=== PATIENT | male | born 1980 | race Caucasian/White ===

== ENCOUNTER → 2020-03-13 | Outpatient (CLI) | payer OTHER ==
--- NOTE | 2020-03-13 08:21 | REP ---
INDICATION: UPPER ABDOMINAL PAIN. COMPARISON: None. TECHNIQUE: Complete abdominal sonography. FINDINGS: Scanning through the right upper quadrant of the abdomen demonstrates a normal sized and walled gallbladder without evidence of stone or polyp. Common bile duct is normal measuring 0.4 cm in greatest diameter. No focal liver lesion is seen. Limited views of pancreas show no abnormality. There is no evidence of ascites. A normal caliber aorta is encountered. Left upper quadrant scanning demonstrates borderline size spleen measuring 13.0 x 12.8 x 6.3 cm. No focal splenic lesion is seen. Renal cortical echogenicity pattern is normal in contours are smooth. No hydronephrosis, cyst, mass or calculus is seen. Right renal dimensions are 12.1 x 6.7 x 5.8 cm. Left kidney measures 13.1 x 5.7 x 5.4 cm. IMPRESSION: Spleen size is borderline. Otherwise negative complete abdominal sonography. <Electronically signed by Reynold Cain > 03/13/20 0801
== END ==
LOC: M RAD 07:25
PROVIDERS: ATTEND Physician Assistant
DX: R10.11 Right upper quadrant pain (principal)

== ENCOUNTER → 2020-04-15 | Outpatient (CLI) | payer OTHER ==
[~2020-04-15] MED LIST: FAMO20TA PO; OMEP-218; PANT40TA29
== END ==
LOC: M LABSMTC 09:23
PROVIDERS: ATTEND Anesthesiology
DX: Z01.812 Encounter for preprocedural laboratory examination (principal); Z20.822 Contact with and (suspected) exposure to COVID-19

== ENCOUNTER 2020-04-20 10:08 | Day surgery (SDC) | payer OTHER ==
[~2020-04-20] VITALS: Ht 188 cm; Wt 106.3 kg
[~2020-04-20 10:08] MED LIST changes: +NS 1,000 ML IV ONE
[2020-04-20] MEDS ORDERED: propofoL 200 MG/20 ML VIAL As Ordered ONE (11:56)
[2020-04-20] MEDS ORDERED: LIDOCAINE 2% 100MG/5ML SDV (FOR ANES.) As Ordered ONE (11:56)
[2020-04-20] MEDS ORDERED: fentaNYL 100 MCG/2 ML INJECTION (J3010) As Ordered ONE (11:56)
--- NOTE | 2020-04-20 12:53 | ROOR ---
Patient Name: Kirk Juan Procedure Date: 04/20/2020 12:39 PM Date of : 1980 Age: 39 Room: [facility] Gender: Male Note Status: Finalized Procedure: Upper GI endoscopy Indications: Suspected esophageal reflux Providers: Nazario Tabor Jr, MD Referring MD: Lilia Soto Requesting Provider: Medicines: Propofol per Anesthesia Complications: No immediate complications. Procedure: Pre-Anesthesia Assessment: - Prior to the procedure, a History and Physical was performed, and patient medications and allergies were reviewed. The patient is competent. The risks and benefits of the procedure and the sedation options and risks were discussed with the patient. All questions were answered and informed consent was obtained. Patient identification and proposed procedure were verified by the physician and the nurse in the pre-procedure area and in the procedure room. Mental Status Examination: alert and oriented. Airway Examination: normal oropharyngeal airway and neck mobility. Respiratory Examination: clear to auscultation. CV Examination: normal. ASA Grade Assessment: II - A patient with mild systemic disease. After reviewing the risks and benefits, the patient was deemed in satisfactory condition to undergo the procedure. The anesthesia plan was to use moderate sedation / analgesia (conscious sedation). Immediately prior to administration of medications, the patient was re-assessed for adequacy to receive sedatives. The heart rate, respiratory rate, oxygen saturations, blood pressure, adequacy of pulmonary ventilation, and response to care were monitored throughout the procedure. The physical status of the patient was re-assessed after the procedure. The Endoscope was introduced through the mouth, and advanced to the second part of duodenum. The upper GI endoscopy was accomplished without difficulty. The patient tolerated the procedure well. Findings: The upper third of the esophagus, middle third of the esophagus and lower third of the esophagus were normal. The cardia, gastric body, gastric antrum and prepyloric region of the stomach were normal. The duodenal bulb, first portion of the duodenum and second portion of the duodenum were normal. Impression: - Normal upper third of esophagus, middle third of esophagus and lower third of esophagus. - Normal cardia, gastric body, antrum and prepyloric region of the stomach. - Normal duodenal bulb, first portion of the duodenum and second portion of the duodenum. - No specimens collected. Recommendation: - Discharge patient to home (ambulatory). - Return to my office at appointment to be scheduled. Procedure Code(s): --- Professional --- 12735, Esophagogastroduodenoscopy, flexible, transoral; diagnostic, including collection of specimen(s) by brushing or washing, when performed (separate procedure) Diagnosis Code(s): --- Professional --- K21.9, Gastro-esophageal reflux disease without esophagitis CPT copyright 2019 [employer]. All rights reserved. The codes documented in this report are preliminary and upon disposal man review may be revised to meet current compliance requirements. Nazario Tabor MD Nazario Tabor Jr, MD 04/20/2020 12:53:03 PM Electronically signed by Nazario Tabor Jr, MD Number of Addenda: 0 Note Initiated On: 04/20/2020 12:39 PM Estimated Blood Loss: Estimated blood loss: none.
[2020-04-20] MEDS ORDERED: PHENYLephrine 500MCG 5ML (100MCG/ML) SYRINGE As Ordered ONE (12:57)
[2020-04-20] MEDS ORDERED: ePHEDrine SULFATE 25 MG/5 ML(5MG/ML) SYRINGE As Ordered ONE (12:58)
--- NOTE | 2020-04-20 13:20 | ROOR ---
Patient Name: Kirk Juan Procedure Date: 04/20/2020 12:41 PM Date of : 1980 Age: 39 Room: [facility] Gender: Male Note Status: Finalized Procedure: Colonoscopy Indications: Rectal bleeding Providers: Nazario Tabor Jr, MD Referring MD: Lilia Soto Requesting Provider: Medicines: Propofol per Anesthesia Complications: No immediate complications. Procedure: Pre-Anesthesia Assessment: - Prior to the procedure, a History and Physical was performed, and patient medications and allergies were reviewed. The patient is competent. The risks and benefits of the procedure and the sedation options and risks were discussed with the patient. All questions were answered and informed consent was obtained. Patient identification and proposed procedure were verified by the physician and the nurse in the pre-procedure area and in the procedure room. Mental Status Examination: alert and oriented. Airway Examination: normal oropharyngeal airway and neck mobility. Respiratory Examination: clear to auscultation. CV Examination: normal. ASA Grade Assessment: II - A patient with mild systemic disease. After reviewing the risks and benefits, the patient was deemed in satisfactory condition to undergo the procedure. The anesthesia plan was to use moderate sedation / analgesia (conscious sedation). Immediately prior to administration of medications, the patient was re-assessed for adequacy to receive sedatives. The heart rate, respiratory rate, oxygen saturations, blood pressure, adequacy of pulmonary ventilation, and response to care were monitored throughout the procedure. The physical status of the patient was re-assessed after the procedure. The Colonoscope was introduced through the anus and advanced to the cecum, identified by appendiceal orifice and ileocecal valve. The colonoscopy was performed without difficulty. The patient tolerated the procedure well. The quality of the bowel preparation was adequate. Findings: The rectum, recto-sigmoid colon, sigmoid colon, descending colon, transverse colon, ascending colon, cecum and appendiceal orifice appeared normal. A localized area of mucosa in the distal ileum was moderately friable with contact bleeding. This was biopsied with a cold forceps for histology. Impression: - The rectum, recto-sigmoid colon, sigmoid colon, descending colon, transverse colon, ascending colon, cecum and appendiceal orifice are normal. - Friability with contact bleeding in the distal ileum. Biopsied. Recommendation: - Discharge patient to home (ambulatory). - Return to my office at appointment to be scheduled. Procedure Code(s): --- Professional --- 08938, Colonoscopy, flexible; with biopsy, single or multiple Diagnosis Code(s): --- Professional --- K92.2, Gastrointestinal hemorrhage, unspecified K62.5, Hemorrhage of anus and rectum CPT copyright 2019 [employer]. All rights reserved. The codes documented in this report are preliminary and upon director human services review may be revised to meet current compliance requirements. Nazario Tabor MD Nazario Tabor Jr, MD 04/20/2020 1:20:25 PM Electronically signed by Nazario Tabor Jr, MD Number of Addenda: 0 Note Initiated On: 04/20/2020 12:41 PM Estimated Blood Loss: Estimated blood loss: none.
[2020-04-20 13:50] VITALS: BP 126/58
== END 2020-04-20 13:53 | disposition home or self-care (01) ==
LOC: M OPP 10:08
PROVIDERS: ATTEND Surgery
DX: K92.2 Gastrointestinal hemorrhage, unspecified (principal); K21.9 Gastro-esophageal reflux disease without esophagitis; K63.89 Other specified diseases of intestine; G47.30 Sleep apnea, unspecified; Z79.899 Other long term (current) drug therapy
CPT/HCPCS: 43235; 45380; 88305; J3010

== ENCOUNTER → 2020-05-19 | Outpatient (CLI) | payer OTHER ==
[~2020-05-19] MED LIST changes: +GASTROGRAFIN SOLUTION 30ML (Q9963) As Ordered ONE; +ISOVUE-370 76% 100ML VIAL As Ordered ONE; -NS 1,000 ML IV ONE
--- NOTE | 2020-05-22 07:32 | REP ---
INDICATION: UPPER ABDOMINAL PAIN, UNSPECIFIED. COMPARISON: None TECHNIQUE: Axial contrast-enhanced images from the lung bases to the pubic symphysis using oral and 100 cc Isovue 370 intravenous contrast material. Precontrast images of the abdomen obtained along with coronal and sagittal reformations. This CT examination was performed using the following dose reduction techniques: Automated exposure control, adjustment of mA and/or kv according to the patient's size, and the use of iterative reconstruction technique. FINDINGS: Liver, spleen, pancreas, gallbladder, bilateral adrenal glands and kidneys are normal. The terminal ileum at the ileocecal junction demonstrates mucosal thickening and mild fat stranding suggesting terminal ileitis. The cecum itself appears normal. The appendix is not identified. The remainder of the small and large bowel is unremarkable. Few scattered sigmoid diverticula noted without acute diverticulitis.. Pelvis demonstrates normal bladder and age-appropriate prostate/seminal vesicles. No ascites. No free air. No intraperitoneal or retroperitoneal adenopathy. Abdominal aorta and vasculature appear normal. Musculoskeletal structures are intact and without acute osseous abnormality. IMPRESSION: 1. Mucosal thickening to the terminal ileum with mild fat stranding suggests terminal ileitis. Correlation and follow-up is recommended to exclude the possibility of inflammatory bowel disease. Remainder of the small and large bowel is grossly unremarkable. 2. Few scattered sigmoid diverticula noted. 3. No further acute abdominopelvic pathology appreciated <Electronically signed by Nasim Portillo > 05/22/20 [id number]
== END ==
LOC: M RAD 13:44
PROVIDERS: ATTEND Physician Assistant
DX: K57.30 Diverticulosis of large intestine without perforation or abscess without bleeding (principal); K63.89 Other specified diseases of intestine; R10.9 Unspecified abdominal pain; K21.9 Gastro-esophageal reflux disease without esophagitis
CPT/HCPCS: 74178; Q9963; Q9967

== ENCOUNTER 2022-01-18 11:49 | Emergency (ER) | payer OTHER ==
[~2022-01-18] VITALS: Ht 193 cm; Wt 116.0 kg
[~2022-01-18 11:49] MED LIST changes: -GASTROGRAFIN SOLUTION 30ML (Q9963) As Ordered ONE; -ISOVUE-370 76% 100ML VIAL As Ordered ONE; +OMEP-173; -OMEP-218
[2022-01-18 15:00] VITALS: BP 130/83
== END 2022-01-18 15:13 | disposition home or self-care (01) ==
LOC: M ED 11:49
DX: I80.01 Phlebitis and thrombophlebitis of superficial vessels of right lower extremity (principal); Z79.899 Other long term (current) drug therapy

== ENCOUNTER → 2022-02-08 | Outpatient (REF) | payer OTHER ==
[2022-02-08 17:34] LABS: APPEARANCE, URINE MANUAL CLEAR (CLEAR); BILIRUBIN, URINE MANUAL NEGATIVE (NEGATIVE); BLOOD URINE MANUAL NEGATIVE (NEGATIVE); COLOR, URINE MANUAL YELLOW (YELLOW); GLUCOSE, URINE (UA) MANUAL NEGATIVE (NEGATIVE); KETONE, URINE MANUAL NEGATIVE (NEGATIVE); LEUKOCYTE ESTERASE, URINE MAN NEGATIVE (NEGATIVE); NITRITE, URINE MANUAL NEGATIVE (NEGATIVE); PROTEIN, URINE MANUAL NEGATIVE (NEGATIVE); UROBILINOGEN, URINE MANUAL NORMAL (NORMAL)
== END ==
LOC: M SMT 16:48
PROVIDERS: ATTEND Physician Assistant
DX: R39.9 Unspecified symptoms and signs involving the genitourinary system (principal)

== ENCOUNTER → 2022-07-10 | Outpatient (CLI) | payer OTHER ==
[2022-07-10 17:42] LABS: RHEUMATOID FACTOR QUANT < 3.5 IU/ML (<14)
== END ==
LOC: M RAD 12:47
PROVIDERS: ATTEND Ophthalmology
DX: H20.00 Unspecified acute and subacute iridocyclitis (principal)

== ENCOUNTER → 2022-07-11 | Outpatient (REF) | payer OTHER | LOC: M LAB REF 11:25 | PROVIDERS: ATTEND Ophthalmology | DX: H20.00 Unspecified acute and subacute iridocyclitis (principal) ==

== ENCOUNTER → 2022-09-05 | Outpatient (CLI) | payer OTHER ==
[~2022-09-05] MED LIST changes: +CYCL1SOL OS; -PANT40TA29; +PANT40TA29 PO; +PREDOPD OS; +TIMO0.5S20 OS
== END ==
LOC: M PLARAD 08:45
PROVIDERS: ATTEND Orthopaedic Surgery
DX: M25.551 Pain in right hip (principal); M25.561 Pain in right knee; K40.90 Unilateral inguinal hernia, without obstruction or gangrene, not specified as recurrent; M17.11 Unilateral primary osteoarthritis, right knee; M25.461 Effusion, right knee; M71.21 Synovial cyst of popliteal space [Baker], right knee

== ENCOUNTER 2023-05-08 07:23 | Day surgery (SDC) | payer OTHER ==
[~2023-05-08] VITALS: Ht 193 cm; Wt 126.6 kg
[~2023-05-08 07:23] MED LIST changes: +ACET500C10 PO; +MIDAZOLAM INJ 2MG/2ML VIAL As Ordered ONE; +PHENYLEPHRINE 10% OPHTH SOL 5ML OS PRN; +fentaNYL 100 MCG/2 ML INJECTION As Ordered ONE
[2023-05-08] MEDS: OFLOXACIN 0.3 % (OCUFLOX) OPTH SOL 5ML OS ONE (07:50)
[2023-05-08] MEDS: LIDOCAINE 3.5 % 1ML OPHTH TOPICAL GEL OU ONE (08:00)
[2023-05-08] MEDS: ATROPINE SULFATE 1% OPHTH SOLN 2ML BTL OS SCH (08:01)
[2023-05-08] MEDS: PHENYLEPHRINE 2.5% OPHTH SOL 2ML OS SCH (08:01)
[2023-05-08] MEDS: TROPICAMIDE 1% OPHTH SOLN 15ML OS SCH (08:01)
[2023-05-08] MEDS: BSS IRRIG/VANCO(10MG)/TOBRA(5MG)/EPINEPH(1:1000-0.5CC)500ML BAG-ORONLY As Ordered ONE (08:54)
[2023-05-08] MEDS: CEFUROXIME 1MG/0.1ML INTRACAMERAL INJ As Ordered ONE (08:54)
[2023-05-08] MEDS: LIDOCAINE 1% SDV 5ML VIAL As Ordered ONE (08:54)
[2023-05-08 09:18] VITALS: BP 162/67; TEMP 97.3; O2SAT 96
== END 2023-05-08 09:40 | disposition home or self-care (01) ==
LOC: M SDC 07:23
PROVIDERS: ATTEND Ophthalmology
DX: H25.12 Age-related nuclear cataract, left eye (principal); H57.03 Miosis; F43.10 Post-traumatic stress disorder, unspecified; F41.9 Anxiety disorder, unspecified; G47.33 Obstructive sleep apnea (adult) (pediatric); N40.0 Benign prostatic hyperplasia without lower urinary tract symptoms; Z79.899 Other long term (current) drug therapy
CPT/HCPCS: 66982; J0697; J2250; J3010; V2632

== ENCOUNTER → 2023-10-27 | Outpatient (CLI) | payer OTHER ==
[~2023-10-27] MED LIST changes: -MIDAZOLAM INJ 2MG/2ML VIAL As Ordered ONE; -PHENYLEPHRINE 10% OPHTH SOL 5ML OS PRN; -fentaNYL 100 MCG/2 ML INJECTION As Ordered ONE
== END ==
LOC: M RAD 14:38
PROVIDERS: ATTEND Dermatology
DX: D49.2 Neoplasm of unspecified behavior of bone, soft tissue, and skin (principal); M67.442 Ganglion, left hand

== ENCOUNTER → 2024-01-22 | Outpatient (CLI) | payer OTHER | LOC: M RAD 11:20 | PROVIDERS: ATTEND Physician Assistant Medical | DX: R60.9 Edema, unspecified (principal); R09.89 Other specified symptoms and signs involving the circulatory and respiratory systems ==

== ENCOUNTER → 2024-11-26 | Day surgery (SDC) | payer OTHER ==
[~2024-11-26] VITALS: Ht 193 cm; Wt 135.5 kg
[~2024-11-26] MED LIST changes: +ACETAMINOPHEN 1000MG/100ML IV BAG As Ordered ONE; +CIPR0.3S37; +DORZ2SOL5 OS; +HYDROMORPHONE HCL 0.5 MG/0.5 ML SYRINGE IV PRN; +KETOROLAC 30 MG/ML 1 ML VIAL As Ordered ONE; +LIDOCAINE 2% 100 MG/5 ML SDV (FOR ANES.) As Ordered ONE; +LR 1,000 ML IV SCH; +MIDAZOLAM INJ 2 MG/2 ML VIAL As Ordered ONE; +NETA2.5D2 OS; +ONDANSETRON 4MG 2ML VIAL As Ordered ONE; +TAMS-18 PO; +ceFAZolin SOD 2 GM IV ONCE IV ONE; +dexAMETHasone 4 MG/ML 1 ML VIAL As Ordered ONE; +dexmedeTOMIDine (4 MCG/ML) 200 MCG/50 ML BTL As Ordered ONE
[2024-11-26] MEDS: ceFAZolin SOD 3 GM in DEXTROSE 5% (D5W) MINI-BAG PLU 1... IV ONE (11:29)
[2024-11-26 13:43] VITALS: BP 117/70; TEMP 98; O2SAT 95
== END | disposition home or self-care (01) ==
LOC: M SDC 07:57
PROVIDERS: ATTEND Orthopaedic Surgery Hand Surgery
DX: L72.0 Epidermal cyst (principal); F43.10 Post-traumatic stress disorder, unspecified; F41.9 Anxiety disorder, unspecified; F32.A Depression, unspecified; K21.9 Gastro-esophageal reflux disease without esophagitis; N40.0 Benign prostatic hyperplasia without lower urinary tract symptoms; Z79.899 Other long term (current) drug therapy
CPT/HCPCS: 26115; 87070; 87075; 87205; 88305; J0131; J0665; J0688; J1100; J1885; J2250; J2405; J3010